=== PATIENT | male | born 1975 | race African-American/Black ===

== ENCOUNTER 2016-04-28 17:44 | Emergency (ER) | payer OTHER ==
[~2016-04-28] VITALS: Ht 177.8 cm; Wt 108.0 kg
[~2016-04-28 17:44] MED LIST: BENZ1TAB PO; CELE20TA PO; CHLO.12%30 SSP; GLUCTAB PO; IBUP600T26 PO; MMW SS; PENI500T PO; PERP8TAB7 PO; PRED20 PO
[2016-04-28 17:47] VITALS: BP 159/94; PULSE 106; RESP 20; TEMP 98.4; O2SAT 96
== END 2016-04-28 20:00 | disposition left against medical advice (07) ==
LOC: NED 17:44
DX: N39.9 Disorder of urinary system, unspecified (principal)
CPT/HCPCS: 99281

== ENCOUNTER 2017-03-05 12:03 | Emergency (ER) | payer OTHER ==
[~2017-03-05] VITALS: Ht 177.8 cm; Wt 104.5 kg
[2017-03-05 12:04] VITALS: BP 130/93; PULSE 129; RESP 18; TEMP 97.9; O2SAT 98
--- NOTE | 2017-03-05 12:29 | PD ---
HPI Chief Complaint: Oral / Dental Pain or Problem Time Seen by Provider: 12:28 Travel History International Travel<30 days: No Contact w/Intl Traveler<30days: No Traveled to known affect area: No History of Present Illness HPI 41-year-old male came to the emergency room with history of sore throat and difficulty swallowing. He told me that he has an abscess in his mouth. Patient had something very similar one month ago when he was diagnosed with abscess at [facility] and was admitted for 2 days for IV antibiotics. It subsided on its own and hence no surgery was needed. Patient says this started 3-4 days ago and patient went to [facility] emergency room yesterday again where he was given a prescription of amoxicillin and was told that he had tooth infection and that he needed to see a dentist. Patient took 2 of those antibiotic pills but wanted to be checked further and hence he is here today. He was getting some chills and sweats 2 days ago which has stopped. Patient was tachycardic in triage. No difficulty breathing. He is having trouble swallowing solid or liquid because of the pain. He says he's been trying to drink a lot of water even though it hurts. PFSH Past Medical History Narrative Medical List of his past medical, surgical, social and family history is reviewed from the nursing note. Depression: Yes Cancer: No Cardiovascular Problems: Yes Diabetes: Yes Patient Takes Glucophage: Yes (took it today) Gastrointestinal Disorders: No Genitourinary: No Hypertension: Yes Immune Disorder: No Musculoskeletal: No Neurologic: No Psychiatric: Yes Reproductive: No Respiratory: Yes Schizophrenia: Yes Tetanus Vaccination: < 5 Years Influenza Vaccination: Yes Past Surgical History Surgical History: No Previous Surgery Other Surgery: No Social History Alcohol Use: Yes ([employer]/DAILY) Tobacco Use: Yes (1 ppd) Substance Use: No Allergies-Medications (Allergen,Severity, Reaction): Coded Allergies: No Known Allergies (Verified Adverse Reaction, Unknown, 03/05/17) Comments No known drug allergies. Reported Meds & Prescriptions Reported Meds & Active Scripts Active Magic Mouthwash-Diphenhy Formula (Lidocaine/Diphenhydr/Alum/Mg/Simeth) Ml 5 Ml SS Q3HR MAGIC MOUTHWASH=MIX 1/3 VISCOUS LIDOCAINE(80 ML), 1/3 MAALOX(80 ML),AND 1/3 BENADRYL(80 ML) TO EQUAL 240 ML TOTAL VOLUME. Deltasone (Prednisone) 20 Mg Tab 20 Mg PO BID Peridex Oral Rinse (Chlorhexidine Gluconate) 0.12 % Kori 15 Ml SSP BID Pen Vk (Penicillin V Potassium) 500 Mg Tab 500 Mg PO TID 10 Days Ibuprofen 600 Mg Tab 600 Mg PO TID PRN Reported Metformin (Metformin HCl) 500 Mg Tab 500 Mg PO DAILY Cogentin (Benztropine Mesylate) 2 Mg Tab 2 Mg PO DAILY Celexa (Citalopram Hydrobromide) 20 Mg Tab 20 Mg PO DAILY Trilafon 8 mg (Perphenazine) 8 Mg Tab 8 Mg PO DAILY Narrative Medication List of his home medications reviewed from the nursing note. Review of Systems Except as stated in HPI: all other systems reviewed are Neg HENT: Positive: Sore Throat Physical Exam Narrative GENERAL: Awake, alert, moderate distress SKIN: Focused skin assessment warm/dry. HEAD: Atraumatic. Normocephalic. EYES: Pupils equal and round. No scleral icterus. No injection or drainage. ENT: No nasal bleeding or discharge. Mucous membranes pink and moist. Erythema and peritonsillar edema and redness on the right side. NECK: Trachea midline. No JVD. CARDIOVASCULAR: Regular rate and rhythm. No murmur appreciated. RESPIRATORY: No accessory muscle use. Clear to auscultation. Breath sounds equal bilaterally. GASTROINTESTINAL: Abdomen soft, non-tender, nondistended. Hepatic and splenic margins not palpable. MUSCULOSKELETAL: No obvious deformities. No clubbing. No cyanosis. No edema. NEUROLOGICAL: Awake and alert. No obvious cranial nerve deficits. Motor grossly within normal limits. Normal speech. PSYCHIATRIC: Appropriate mood and affect; insight and judgment normal. Data Data Last Documented VS Vital Signs Date Time Temp Pulse Resp B/P (MAP) Pulse Ox O2 Delivery O2 Flow Rate FiO2 03/05/17 15:17 03/05/17 15:10 16 03/05/17 12:04 97.9 129 98 Orders Orders Basic Metabolic Panel (Bmp) (03/05/17 12:42) Complete Blood Count With Diff (03/05/17 12:42) Blood Culture (03/05/17 12:42) Ketorolac Inj (Toradol Inj) (03/05/17 12:45) Clindamycin Inj (Cleocin Inj) (03/05/17 12:45) Sodium Chlor 0.9% 1000 Ml Inj (Ns 1000 M (03/05/17 12:45) Group A Rapid Strep Screen (03/05/17 12:42) Ct Soft Tiss Neck W Iv Cont (03/05/17 ) C-Reactive Protein (Crp) (03/05/17 12:42) Strep Culture (Group A) (03/05/17 13:00) Iohexol 350 Inj (Omnipaque 350 Inj) (03/05/17 14:30) Ed Discharge Order (03/05/17 15:04) Labs Laboratory Tests Test 03/05/17 13:05 White Blood Count 9.4 TH/MM3 Red Blood Count 6.35 MIL/MM3 Hemoglobin 17.1 GM/DL Hematocrit 50.2 % Mean Corpuscular Volume 79.1 FL Mean Corpuscular Hemoglobin 26.9 PG Mean Corpuscular Hemoglobin Concent 34.0 % Red Cell Distribution Width 15.0 % Platelet Count 216 TH/MM3 Mean Platelet Volume 8.4 FL Neutrophils (%) (Auto) 71.5 % Lymphocytes (%) (Auto) 13.4 % Monocytes (%) (Auto) 14.4 % Eosinophils (%) (Auto) 0.4 % Basophils (%) (Auto) 0.3 % Neutrophils # (Auto) 6.7 TH/MM3 Lymphocytes # (Auto) 1.3 TH/MM3 Monocytes # (Auto) 1.3 TH/MM3 Eosinophils # (Auto) 0.0 TH/MM3 Basophils # (Auto) 0.0 TH/MM3 CBC Comment DIFF FINAL Differential Comment Blood Urea Nitrogen 18 MG/DL Creatinine 1.36 MG/DL Random Glucose 127 MG/DL Calcium Level 9.3 MG/DL Sodium Level 132 MEQ/L Potassium Level 4.3 MEQ/L Chloride Level 99 MEQ/L Carbon Dioxide Level 24.9 MEQ/L Anion Gap 8 MEQ/L Estimat Glomerular Filtration Rate 70 ML/MIN C-Reactive Protein 15.00 MG/DL [facility] Medical Decision Making Medical Screen Exam Complete: Yes Emergency Medical Condition: Yes Medical Record Reviewed: Yes Differential Diagnosis Peritonsillar abscess, tonsillitis, Narrative Course 2:05 PM blood test results of back and patient has elevated white count with left shift and elevated CRP. Awaiting for the CT scan of his neck to be done and resulted. I gave him a dose of IV clindamycin and fluid. He was also medicated for pain and IV Decadron for swelling. 3:04 PM CAT scan does not show any abscess. Bilateral tonsillar adenopathy. I' m comfortable discharging him home. He needs to finish his antibiotic course. Procedures EKG Prior to Arrival: No Diagnosis Primary Impression: Tonsillitis Additional Impression: Odynophagia Referrals: Primary Care Physician Additional Instructions: Please continue and finish the antibiotic that has been started on you by the previous physician. Follow-up with your primary care. You can take in addition Motrin/ibuprofen/Advil for pain relief. Warm water saline gargles would be helpful too. Med/Other Pt SpecificInfo: No Change to Meds Disposition: 01 DISCHARGE HOME Condition: Stable Joaquim Pastor MD Mar 05, 2017 12:29
[2017-03-05] MEDS ORDERED: KETOROLAC TROMETHAMINE 30 MG/ML (IVP) VIAL IVP ONE (12:45)
[2017-03-05] MEDS ORDERED: CLINDAMYCIN INJ 900 MG in SODIUM CHLORIDE 0.9% INJ 100 ML IV ONE (12:45)
[2017-03-05] MEDS ORDERED: SODIUM CHLOR 0.9% 1000 ML INJ 1,000 ML IV ONE (12:45)
[2017-03-05 13:19] LABS: AUTOMATED NEUTROPHIL # 6.7 TH/MM3 (1.8-7.7); BASOPHIL % 0.3 % (0.0-2.0); EOSINOPHIL % 0.4 % (0.0-4.0); HEMATOCRIT 50.2 % (39.0-51.0); HEMOGLOBIN 17.1 GM/DL (13.0-17.0); LYMPH % 13.4 % (9.0-44.0); LYMPHOCYTE # 1.3 TH/MM3 (1.0-4.8); MEAN CELL VOLUME 79.1 FL (80.0-100.0); MEAN CORPUSCULAR HEMOGLOBIN 26.9 PG (27.0-34.0); MEAN PLATELET VOLUME 8.4 FL (7.0-11.0); MONO % 14.4 % (0.0-8.0); MONOCYTE # 1.3 TH/MM3 (0-0.9); NEUT % 71.5 % (16.0-70.0); PLATELET COUNT 216 TH/MM3 (150-450); RED BLOOD COUNT 6.35 MIL/MM3 (4.50-5.90); WHITE BLOOD COUNT 9.4 TH/MM3 (4.0-11.0)
[2017-03-05 13:35] LABS: BICARBONATE 24.9 MEQ/L (21.0-32.0); CALCIUM 9.3 MG/DL (8.5-10.1); CREATININE 1.36 MG/DL (0.60-1.30)
[2017-03-05] MEDS ORDERED: IOHEXOL 350 MG/ML 10 ML VIAL (for RAD DIAG) IVCONTRAST ONE (14:30)
--- NOTE | 2017-03-05 15:02 | RADRPT ---
EXAM DATE/TIME: 03/05/2017 14:19 [place] COMPARISON: No previous studies available for comparison. INDICATIONS : Right sided mouth pain and swelling for four days. IV CONTRAST: 67 cc Omnipaque 350 (iohexol) IV RADIATION DOSE: 16.29 CTDIvol (mGy) MEDICAL HISTORY : Hypertension. diabetes SURGICAL HISTORY : None. ENCOUNTER: Initial ACUITY: 1 day PAIN SCALE: 7/10 LOCATION: Right mouth TECHNIQUE: Volumetric scanning of the neck was performed. Using automated exposure control and adjustment of th e mA and/or kV according to patient size, radiation dose was kept as low as reasonably achievable to obtain optimal diagnostic quality images. DICOM format image data is available electronically for r eview and comparison. FINDINGS: Examination of the skull base demonstrates no evidence of deep infiltrating mucosal lesion. The oroph arynx, hypopharynx, glottic and subglottic airway demonstrate no abnormality. The tonsils are promine nt in size bilaterally particularly on the right but no discrete abscess is evident. There are guero us enlarged lymph nodes bilaterally largest measuring 3.5 cm group 2 on the right. There is a likely interdental 10 mm nodule in the right lobe of the thyroid. The lung apices demonstrate no abnormality . There is benign-appearing mucosal disease in the left maxillary sinus. CONCLUSION: 1. Prominent tonsils bilaterally as well as bilateral reactive adenopathy likely infectious or inflam matory. There is no evidence of abscess. Edd Lema MD on March 05, 2017 at 14:56 Board Certified Radiologist. This report was verified electronically.
[2017-03-05 15:10] VITALS: RESP 16
== END 2017-03-05 19:33 | disposition home or self-care (01) ==
LOC: NEPD 12:03
DX: J03.90 Acute tonsillitis, unspecified (principal); R13.10 Dysphagia, unspecified; R00.0 Tachycardia, unspecified; F32.9 Major depressive disorder, single episode, unspecified; E11.9 Type 2 diabetes mellitus without complications; I10 Essential (primary) hypertension; F20.9 Schizophrenia, unspecified; F17.200 Nicotine dependence, unspecified, uncomplicated; Z79.899 Other long term (current) drug therapy
CPT/HCPCS: 70491; 80048; 85025; 86140; 87040; 87081; 87880; 96365; 96366; 96375; 99285; J1885; J7030; Q9967